=== PATIENT | female | born 1930 | race Caucasian/White ===

== ENCOUNTER 2017-03-15 09:50 | Outpatient (CLI) | payer MEDICARE, OTHER ==
[~2017-03-15] VITALS: Ht 165.1 cm; Wt 55.5 kg
[~2017-03-15 09:50] MED LIST: ALDACTONE50 MG PO; INDERAL 40 MG T40 MG PO; LASIX20 MG PO; ROBAXIN500 MG PO; ULTRAM50 MG PO
[2017-03-15 10:58] VITALS: BP 134/69; Ht 165.1 cm; Wt 55.5 kg
--- NOTE | 2017-03-15 11:01 | NUR ---
1100 PATIENT HERE FOR PROLIA INJECTION, GIVEN IN LEFT UPPER SUBQ TISSUE WITHOUT PROBLEMS AT THE SITE NOTED
== END 2017-03-15 11:10 ==
LOC: D.OPS 09:50
DX: M81.0 Age-related osteoporosis without current pathological fracture (principal)

== ENCOUNTER 2017-09-20 09:29 | Outpatient (CLI) | payer MEDICARE, OTHER ==
[~2017-09-20] VITALS: Ht 165.1 cm; Wt 51.8 kg
[2017-09-20 10:03] VITALS: BP 125/47; Ht 165.1 cm; Wt 51.8 kg
--- NOTE | 2017-09-20 10:42 | NUR ---
1025--DISCHARGE INSTRUCTIONS GIVEN, PT VERBALIZES UNDERSTANDING. PT OFF UNIT VIA NO. AMANDA LAURA
== END 2017-09-20 10:25 | disposition home or self-care (01) ==
LOC: D.OPS 09:29
DX: M81.0 Age-related osteoporosis without current pathological fracture (principal)

== ENCOUNTER → 2017-10-23 12:26 | Outpatient (CLI) | payer MEDICARE, OTHER ==
[2017-09-20 10:03] VITALS: BMI 19.0
== END | disposition home or self-care (01) ==
LOC: D.LABREF 12:26
DX: K72.90 Hepatic failure, unspecified without coma (principal); N18.3 Chronic kidney disease, stage 3 (moderate)

== ENCOUNTER → 2017-10-31 16:30 | Outpatient (CLI) | payer MEDICARE, OTHER ==
[2017-09-20 10:03] VITALS: BMI 19.0
== END | disposition home or self-care (01) ==
LOC: D.LABREF 16:30
DX: I13.0 Hypertensive heart and chronic kidney disease with heart failure and stage 1 through stage 4 chronic kidney disease, or unspecified chronic kidney disease (principal)

== ENCOUNTER → 2017-11-08 14:43 | Outpatient (CLI) | payer MEDICARE, OTHER ==
[2017-09-20 10:03] VITALS: BMI 19.0
== END | disposition home or self-care (01) ==
LOC: D.LAB 14:43
DX: I13.0 Hypertensive heart and chronic kidney disease with heart failure and stage 1 through stage 4 chronic kidney disease, or unspecified chronic kidney disease (principal); K72.90 Hepatic failure, unspecified without coma

== ENCOUNTER → 2017-11-13 14:19 | Outpatient (CLI) | payer MEDICARE, OTHER ==
[2017-09-20 10:03] VITALS: BMI 19.0
[2017-11-13 15:12] LABS: ANION GAP 12.8 mmol/L (8-16); APPEARANCE CLEAR (CLEAR); BILIRUBIN NEGATIVE (NEGATIVE); CALCIUM 8.2 mg/dL (8.5-10.1); CARBON DIOXIDE 27.8 mmol/L (21.0-32.0); COLOR YELLOW (YELLOW); CREATININE - SERUM 2.3 mg/dL (0.6-1.3); GLUCOSE NEGATIVE (NEGATIVE); KETONE NEGATIVE (NEGATIVE); NITRITE NEGATIVE (NEGATIVE); POTASSIUM - SERUM 3.6 mmol/L (3.5-5.1); PROTEIN NEGATIVE (NEGATIVE); SPECIFIC GRAVITY 1.025 (1.005-1.020); UROBILINOGEN NORMAL (NORMAL)
== END | disposition home or self-care (01) ==
LOC: D.LABREF 14:19
PROVIDERS: Family Medicine
DX: N39.0 Urinary tract infection, site not specified (principal)